=== PATIENT | male | born 1960 | race Caucasian/White ===

== ENCOUNTER 2016-10-07 14:20 | Emergency (ER) | payer BC ==
[~2016-10-07] VITALS: Ht 193 cm; Wt 122.7 kg
--- NOTE | 2016-10-07 14:38 | NUR ---
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
--- NOTE | 2016-10-07 14:56 | NUR ---
CT COMPLETED. PT BEING TRANSFERRED BACK TO ED - ACCOMPANIED BY Spring MATAMOROS RN AND CT STAFF.
--- NOTE | 2016-10-07 15:04 | NUR ---
VERBAL RESPONSES TO , DAUGHTER, AND RAMP JOCKEY ARE A LITTLE SLOW BUT APPROPIATE. PT ASKS ABOUT [employer] FAMILY MEMBER AND TELLS NURSE THAT HER DAUGHTER IS ORNERY. ANSWERS DATE,DAY, MONTH, PRESIDENT APPROP.
--- NOTE | 2016-10-07 15:15 | NUR ---
RESPIRATORY THERAPIST CHANGES PT'S SUPPLEMENTAL OXYGEN TO 10 LPM VIA OXYMASK.
--- NOTE | 2016-10-07 15:15 | NUR ---
DR. EDDIE VALADEZAYS HOLDING OFF ON TRYING TO START 2ND IV SITE AFTER 3 UNSUCCESSFUL STICKS BY Spring MATAMOROS RN AND ONE UNSUCCESSFUL STICK BY THIS NURSE.
[2016-10-07 15:20] LABS: BASOPHILS % (AUTO) 1 % (0-2); EOSINOPHILS # (AUTO) 0.1 10^3uL; EOSINOPHILS % (AUTO) 2 % (0-4); LYMPHOCYTES # (AUTO) 1.7 X10^3; MEAN CORPUSCULAR HGB CONC 35.2 g/dL (31.0-37.0); MEAN CORPUSCULAR VOLUME 91 FL (80-100); MEAN PLATELET VOLUME 12.4 FL (6.0-9.5); MONOCYTES # (AUTO) 0.5 X10^3; MONOCYTES % (AUTO) 7 % (3-11); NEUTROPHILS # (AUTO) 4.8 X10^3; NEUTROPHILS % (AUTO) 67 % (51-67); PLATELET COUNT 217 10^3uL (150-450); WHITE BLOOD COUNT 7.12 10^3uL (4.0-11.0)
--- NOTE | 2016-10-07 15:25 | NUR ---
PT'S STATES SHE WOULD PREFER PT BE TRANSFERRED TO VIA [facility] [place].
[2016-10-07 15:35] LABS: MEAN CORPUSCULAR HEMOGLOBIN 31.8 PG (26.0-34.0)
--- NOTE | 2016-10-07 15:41 | NUR ---
DR. MORGAN INFORMS NURSING THAT PT TO BE TRANSFERRED TO [facility] WITH DX OF "STROKE". CALL TO [facility] INITIATED BY Jose Alberto NATH RN TO FACILITATE DR. MORGAN TALKING WITH NEUROLOGIST.
[2016-10-07 15:45] LABS: ALBUMIN 4.4 g/dL (3.4-5.0); ALKALINE PHOSPHATASE 70 U/L (38-126); ANION GAP 16.5 MEQ/L (3-15); BUN/CREATININE RATIO 14 (10-20); CALCULATED IONIZED CALCIUM 3.9 mg/dL (3.8-4.6)
[2016-10-07 15:47] LABS: BILIRUBIN,URINE Negative (Negative); CLARITY,URINE Clear; COLOR,URINE Yellow; GLUCOSE, URINE (UA) Negative (Negative); LEUKOCYTE ESTERASE ,URINE Negative (Negative); UROBILINOGEN,URINE 0.2 mg/dL (0.2-1.0)
[2016-10-07 15:49] LABS: CREATINE KINASE 273 U/L (55-170)
[2016-10-07 15:52] LABS: RBC,URINE None Seen /HPF; URINE CENTRIFUGED VOLUME <10mL Unspun
[2016-10-07 15:55] LABS: AMPHETAMINE SCREEN, URINE Negative (Negative); CANNABINOID SCREEN, URINE Negative (Negative); METHAMPHETAMINE SCREEN URINE S NEGATIVE (NEGATIVE); OPIATE SCREEN URINE Negative (Negative); PROPOXYPHENE STAT NEGATIVE (NEGATIVE)
[2016-10-07] MEDS ORDERED: ALTEPLASE IV ONE ×2 (16:03→16:20)
[2016-10-07] MEDS ORDERED: SODIUM CHLORIDE FLUSH 10 ML SYR IV PRN (16:20)
[2016-10-07 16:51] VITALS: BP 119/77
--- NOTE | 2016-10-07 17:15 | NUR ---
PATIENT REPORT HAS BEEN GIVEN TO Yonis BANG RN WITH [employer].
== END 2016-10-07 17:16 | disposition short-term general hospital (02) ==
LOC: EDUNIT# 14:20 → ED 14:21
DX: R41.82 Altered mental status, unspecified (principal); R25.8 Other abnormal involuntary movements
CPT/HCPCS: 36415; 51702; 70450; 80053; 80307; 80320; 81003; 81015; 82274; 82550; 82553; 84484; 85025; 85610; 85730; 86140; 93005; 96365; 99285; J2997; 99291

== ENCOUNTER → 2016-10-07 | Outpatient (CLI) | payer BC | LOC: EMS 14:20 | PROVIDERS: ATTEND Emergency Medicine | DX: R41.82 Altered mental status, unspecified (principal); G20 Parkinson's disease; R56.9 Unspecified convulsions ==